=== PATIENT | male | born 1930 | race Caucasian/White ===

== ENCOUNTER 2019-07-03 12:57 | Observation (INO) | payer MEDICARE ==
[~2019-07-03] VITALS: Ht 182.9 cm; Wt 100.0 kg
[2019-07-03 13:26] LABS: BASO % 0.4 % (0.0-2.0); EOS # 0.1 (0.0-0.7); EOS % 0.5 % (0-4.0); GRAN # 8.4 (1.4-6.5); GRAN % 77.5 % (42.2-75.2); HEMATOCRIT 39.6 % (42.0-52.0); HEMOGLOBIN 13.1 g/dl (13.5-18.0); LYMPH # 1.4 (1.2-3.4); MEAN CELL VOLUME 97 fl (80.0-100.0); MEAN CORPUSCULAR HEMOGLOBIN 32 pg (27.0-31.0); MEAN CORPUSCULAR HGB CONC 33 g/dl (33.0-37.0); MEAN PLATELET VOLUME 10.8 fl (7.4-10.4); MONO # 0.9 (0.1-0.6); MONO % 8.3 % (1.7-9.3); PLATELET COUNT 257 K/mm3 (130-400)
[2019-07-03 13:32] LABS: COLLECTION METHOD CLEAN CATCH
[2019-07-03 13:37] LABS: MUCOUS Present /lpf; PH 6 (5-8); SQUAMOUS EPITHELIAL 0-2 /hpf; URINE APPEARANCE Clear; URINE BACTERIA None Seen /hpf; URINE BILIRUBIN Negative (NEGATIVE); URINE BLOOD 2+ (NEGATIVE); URINE COLOR Yellow; URINE GLUCOSE Negative (NEGATIVE); URINE KETONE Negative (NEGATIVE); URINE LEUKOCYTE ESTERASE Negative (NEGATIVE); URINE NITRATE Negative (NEGATIVE); URINE PROTEIN(semi-quant) Negative (NEGATIVE); URINE RBC 0-2 /hpf; URINE UROBILINOGEN Negative (NEGATIVE)
[2019-07-03 13:39] LABS: ALBUMIN 4.2 gm/dL (3.5-5.0); CALCIUM 9.7 mg/dL (8.4-10.2); CREATININE, serum 1.41 (0.66-1.25); POTASSIUM 4.5 mmol/L (3.4-5.0); TOTAL PROTEIN 7.6 gm/dL (6.4-8.2)
[2019-07-03 17:41] VITALS: BP 130/53; PULSE 76; TEMP 97.3
--- NOTE | 2019-07-03 19:30 | NUR ---
Pt. laying in bed at this time. Pt. is A&OX3, assessment complete. IV to lt. ac patent, IV fluids infusing per orders. Pt. denies pain or other needs, call light within reach.
[2019-07-03 20:10] VITALS: BP 100/41; PULSE 76; TEMP 97.6
[2019-07-04 00:22] VITALS: BP 107/40; PULSE 76; TEMP 97.8
[2019-07-04 04:16] VITALS: BP 105/41; PULSE 80; TEMP 98
--- NOTE | 2019-07-04 06:19 | NUR ---
Pt. slept well. Pt. remains A&OX3. IV to lt. ac patent. Pt. denies needs.
[2019-07-04 07:40] VITALS: BP 107/48; PULSE 92; TEMP 97.9
--- NOTE | 2019-07-04 08:25 | NUR ---
HOSPITALIST CARE TEAM ROUNDING. SEE ORDERS.
[2019-07-04 08:50] LABS: BASO % 0.4 % (0.0-2.0); EOS # 0.1 (0.0-0.7); EOS % 1.6 % (0-4.0); GRAN # 5.4 (1.4-6.5); GRAN % 75.9 % (42.2-75.2); LYMPH # 0.9 (1.2-3.4); LYMPH % 12.6 % (20.0-51.0); MEAN CELL VOLUME 98 fl (80.0-100.0); MEAN CORPUSCULAR HGB CONC 33 g/dl (33.0-37.0); MEAN PLATELET VOLUME 10.8 fl (7.4-10.4); MONO # 0.7 (0.1-0.6); MONO % 9.2 % (1.7-9.3); PLATELET COUNT 195 K/mm3 (130-400); RED BLOOD COUNT 3.27 M/mm3 (4.20-5.60)
[2019-07-04 08:53] LABS: HEMOGLOBIN 10.6 g/dl (13.5-18.0); MEAN CORPUSCULAR HEMOGLOBIN 32 pg (27.0-31.0)
[2019-07-04 09:08] LABS: CALCIUM 8.5 mg/dL (8.4-10.2); CREATININE, serum 1.29 (0.66-1.25)
--- NOTE | 2019-07-04 10:38 | NUR ---
UROLOGY PA AT BEDSIDE. SEE NOTES
[2019-07-04 10:50] VITALS: BP 119/43; PULSE 86; TEMP 97.3
--- NOTE | 2019-07-04 11:26 | NUR ---
INOCENTE met with the patient and the patient's son, Ab (ph#[phone]), to discuss discharge plan. The patient lives alone outside of [place]. Ab lives close by and the patient's , Chanda, is a long-term care resident at [facility]. The patient reports independence with ADLs and has crutches. The patient's PCP is Dr. Fan Whittaker and he receives his medications at [facility]. Ab reports no difficulties obtaining his meds. The patient does not have advanced directives, but he was interested in completing one. INOCENTE provided the DPOA-HC form. The patient designated his son (Ab Powell) and [id number] (Parvin Powell, ph#[phone]). INOCENTE and the patient's RN, Steph, witnessed the patient's signature. The patient and his son was provided with the original and some copies. The patient and his son would be interested in going to [facility] for a short time for SNF. INOCENTE discussed how the patient is observation and how it would be private pay. The patient's son is agreeable to private pay. INOCENTE presented and explained the Patient Choice Form to the patient and his son. The patient verbalized understanding, signed, and he was provided a copy. INOCENTE contacted and faxed a referral to Laekisha at [facility]. Lakeisha reports that they are able to accept the patient. SW to inform the patient and his son and will continue to follow.
--- NOTE | 2019-07-04 15:30 | NUR ---
AT BEDSIDE AND WAS ABLE TO TALK THE PATIENT INTO STAYING ANOTHER NIGHT. SEE ORDERS FOR CT SCAN. PATIENT WAS NOT ABLE TO TOLERATE THE MRI.
[2019-07-04 15:34] VITALS: BP 140/45; PULSE 86; TEMP 97.8
--- NOTE | 2019-07-04 15:40 | NUR ---
GAVE PRN PO ATIVAN BEFORE CT SCAN PER ORDERS
--- NOTE | 2019-07-04 16:15 | NUR ---
PATIENT GOING DOWN TO CT SCAN. GAVE PRN MORPHINE 1MG IV PER ORDERS. FAMILY AT BEDSIDE.
--- NOTE | 2019-07-04 18:00 | NUR ---
FAMILY OUT AT DESK ABOUT TO LEAVE FOR THE NIGHT. WHEN FAMILY LEFT ROOM PATIENT IMMEDIATELY TIRED TO GET UP AND LEAVE. PATIENT IS A LITTLE CONFUSED AFTER RECEIVING ATIVAN AND MORPHINE FOR CT SCAN. PATIENT ASSITED BACK INTO BED. BED ALARM ON. PATIENT MESSING WITH IV SITE. COVERED LEFT AC IV WITH COBAN. HAMMOND CATH IS LEAKING. CT REPORTED BREAKING OFF HAMMOND HOOK DOWN IN CT. APPLIED NEW HAMMOND DRAINAGE BAG. PATIENT NOW RESTING UP IN BED WITH ICE CREAM AND HAPPY. CALL LIGHT IN REACH. BED ALARM ON. WILL MONITOR.
--- NOTE | 2019-07-04 19:15 | NUR ---
Report received. Assumed care for veterinary hospital shift lead. Unable to do full assessment. Very combative and confused. Wont allow staff near enough to assess-striking out, kicking and spitting. Climbing out of bed over bed rails.
--- NOTE | 2019-07-04 20:20 | NUR ---
Notified RICARDO Martines of change in orientation/combativeness. Will come to see.
--- NOTE | 2019-07-05 | NUR ---
Still remains combative/uncooperative. Did calm down some after putting underwear on. No VS completed so far this shift as wont let staff close to him without hitting/spitting. PCT at bedside constantly.
--- NOTE | 2019-07-05 01:00 | NUR ---
Resting eyes closed. Has calmed down for first time. PCT remains at bedside. Instructed to let sleep-not to wake for VS. Marquez cath with light pink urine. Will monitor.
--- NOTE | 2019-07-05 02:53 | NUR ---
Rested well from until now. Restless/agitated/confused/combative. Pulling on guzman cath/IV site tubing. Attempting to crawl out foot of bed. Tried re-orienting but makes more combative. Haldol given per dr blanton.
--- NOTE | 2019-07-05 04:00 | NUR ---
Restless off and on. C/O pain at IV site. Noted to be irritated-redness/small amount of swelling. DCd at this time. Refusing to allow restart. Did not attempt to discuss further as its making more agitated/combative. Has spit several times since 0200 at staff. Denies pain. Assisted back to bed with x3 staff. Alma has some small clots in tubing. Output is light pink at times. Denies needs. PCT has remained at bedside all this shift. Will monitor.
--- NOTE | 2019-07-05 06:40 | NUR ---
sitting up on side of bed with DIRECTOR OF ACCOUNTING at side, he is confused to time and place and asking someone to take him to Dr Long Dhillon in to see patient, He is not combative at this time
--- NOTE | 2019-07-05 07:00 | NUR ---
family here to visit and is wanting Dr to see and discharge as soon as possible
[2019-07-05 07:11] LABS: BASO % 0.3 % (0.0-2.0); EOS # 0.1 (0.0-0.7); EOS % 0.6 % (0-4.0); GRAN # 7.5 (1.4-6.5); GRAN % 75.3 % (42.2-75.2); LYMPH # 1.2 (1.2-3.4); LYMPH % 12.2 % (20.0-51.0); MEAN CELL VOLUME 96 fl (80.0-100.0); MEAN CORPUSCULAR HEMOGLOBIN 32 pg (27.0-31.0); MEAN CORPUSCULAR HGB CONC 34 g/dl (33.0-37.0); MEAN PLATELET VOLUME 11.4 fl (7.4-10.4); MONO # 1.1 (0.1-0.6); MONO % 11.1 % (1.7-9.3); PLATELET COUNT 205 K/mm3 (130-400); RED BLOOD COUNT 3.41 M/mm3 (4.20-5.60); REDCELL DISTRIBUTION WIDTH-CV 12.9 % (11.5-14.5)
[2019-07-05 07:13] LABS: HEMATOCRIT 32.7 % (42.0-52.0)
[2019-07-05 07:27] LABS: CALCIUM 8.8 mg/dL (8.4-10.2); CREATININE, serum 1.16 (0.66-1.25); POTASSIUM 3.9 mmol/L (3.4-5.0)
--- NOTE | 2019-07-05 07:30 | NUR ---
in bed and has had breakfast and tolerated well, is dozing for very short intervals and is being encouraged to sleep by LAND CHECKER and [id number]
[2019-07-05] MEDS ORDERED: FLOMAX 0.40.4 MG/CAP PO (08:29)
[2019-07-05] MEDS ORDERED: TYLENOL 325MG325 MG PO (08:30)
--- NOTE | 2019-07-05 08:45 | NUR ---
family outside of room and states the pateint is now sleeping, will wait until he is awake for assessment, [employer] remains at bedside
--- NOTE | 2019-07-05 09:00 | NUR ---
Dr Perez spoke with family outside of room as patient continues to sleep, will plan discharge to [facility], Dr Will come and assess when patient is awake
--- NOTE | 2019-07-05 09:15 | NUR ---
The patient is to discharge today, 07/05, to [facility] for a private pay skilled stay. The patient's son, Ab, is to provide transportation for the patient with [facility]. No additional needs at this time.
[2019-07-05 09:33] VITALS: BP 140/45; PULSE 86; TEMP 97.8
--- NOTE | 2019-07-05 10:05 | NUR ---
continues to appear to sleep, in bed with lights off, eyes closed, resp quiet and easy, PHYSIOTHERAPY AIDE remains at bedside
--- NOTE | 2019-07-05 10:31 | NUR ---
daughterin-law states will be back soon for transfer so patient awakened now, Dr Perez in to assess patient and full assessment completed by this nurse, see interventions for further info, telemetry discontinued and AUDITOR assisting him with getting dressed for discharge
--- NOTE | 2019-07-05 10:57 | NUR ---
patient discharge per WC with family, report called to TOÑA Melendrez at [facility]
[2019-07-05 11:04] VITALS: BP 115/70; PULSE 78; TEMP 96.9
== END 2019-07-05 10:57 ==
LOC: COL.ER 12:57 → SURG 14:54
PROVIDERS: Emergency Medicine; Physician Assistant; ADMIT Student in an Organized Health Care Education/Training Program
DX: R26.2 Difficulty in walking, not elsewhere classified (principal); M16.11 Unilateral primary osteoarthritis, right hip; G89.29 Other chronic pain; M54.5 Low back pain; N17.9 Acute kidney failure, unspecified; N40.1 Benign prostatic hyperplasia with lower urinary tract symptoms; R33.9 Retention of urine, unspecified; Z85.46 Personal history of malignant neoplasm of prostate; Z83.3 Family history of diabetes mellitus; Z82.49 Family history of ischemic heart disease and other diseases of the circulatory system
CPT/HCPCS: G0378; J1630; J2270; J7030; J7040

== ENCOUNTER 2019-07-15 06:05 | Inpatient (IN) | payer MEDICARE ==
[2019-07-15] VITALS (7 sets, daily range): BP systolic 104–127; BP diastolic 42–96; PULSE 74–104; TEMP 97.8–98.9
[~2019-07-15] VITALS: Ht 180.3 cm; Wt 103.6 kg
[~2019-07-15 06:05] MED LIST: FLOMAX 0.40.4 MG/CAP PO; TYLENOL 325MG325 MG PO
[2019-07-15] MEDS ORDERED: MELATONIN5 M1 SL (07:00)
[2019-07-15] MEDS ORDERED: CIPRO 500MG TA500 MG PO (07:00)
[2019-07-15] MEDS ORDERED: FLOMAX 0.40.4 MG/CAP PO (07:01)
[2019-07-15] MEDS ORDERED: TYLENOL 325MG325 MG PO (07:02)
[2019-07-15] MEDS ORDERED: TYLENOL 500MG500 MG PO (07:03)
--- NOTE | 2019-07-15 11:28 | NUR ---
Sitting with patient at this time as he is very restless. He does know that he just had a procedure done, but quickly forgets. Pt family left at this time, will continue to monitor.
--- NOTE | 2019-07-15 20:02 | NUR ---
Sitting up in chair. Patient confused as to what procedure he had done today. Explained to the patient procedure that was done and reason for catheter. Catheter intact draining clear pink urine with scant amount of clots. CBI in place. Denies pain. Denies further needs at this time.
--- NOTE | 2019-07-15 23:43 | NUR ---
Lying in bed on left side with eyes closed. Respirations even and unlabored. No signs or symptoms of discomfort noted. CBI patent at slow drip. Marquez patent with pink colored urine in bag.
--- NOTE | 2019-07-16 01:36 | NUR ---
Lying in bed on right side with eyes closed. Respirations even and unlabored. No signs or symptoms of discomfort noted. CBI patent and slow draining. Marquez patent with clear pink urine in bag.
[2019-07-16 03:57] VITALS: BP 112/52; PULSE 80; TEMP 97.9
--- NOTE | 2019-07-16 04:47 | NUR ---
Lying in bed on left side with eyes closed. Respirations even and unlabored. No signs or symptoms of discomfort noted. CBI continues slowly. Catheter patent with clear yellow urine in bag.
[2019-07-16 07:43] VITALS: BP 116/48; PULSE 98; TEMP 100.5
--- NOTE | 2019-07-16 09:00 | NUR ---
Patient alert and oriented, answers questions appropriately. See assessment. Marquez catheter patent and draining clear yellow urine. CBI clamped at 0745. No c/o pain or discomfort.
[2019-07-16 11:50] VITALS: BP 114/59; PULSE 87; TEMP 98.1
[2019-07-16 15:33] VITALS: BP 108/61; PULSE 79; TEMP 97.8
--- NOTE | 2019-07-16 16:22 | NUR ---
plan: To return home with family members as care support. Patient reports his son Amrit lives across the street, and his granddaughter and grandson Sonam, and Esequiel live in [place] and visit him daily. Patient lives in [facility]. Assess: SW met with patient at this bedside. patient reports that he is very independent and he is able to get around with minimal assistance. SM reports that he does rely on a walker. Patient reports that Dr. Self is is primary care physician, and he gets his medications from [facility] with no complications. Patient denied having any care concerns, and patient denied a need for home health services stating that his daughter in law Parvin takes [phone] takes care of him as well. Action: No additional concerns identified. Patient was educated on community resources and supports.
--- NOTE | 2019-07-16 19:30 | NUR ---
Assisted to bed with 2 assist. Unsteady on his feet. Has guzman catheter to BSD with yellow urine. Catheter cares provided. SL to left hand without redness or swelling. Is alert and oriented x3. Watching football on tV at this time.
[2019-07-16 20:10] VITALS: BP 122/51; PULSE 82; TEMP 97.3
--- NOTE | 2019-07-17 00:10 | NUR ---
Patient awake, asks time of day and when Dr Bueno would be in to see him. Cooperative with staff. Bed alarm on.
[2019-07-17 00:19] VITALS: BP 97/40; PULSE 85; TEMP 99
[2019-07-17 04:28] VITALS: BP 111/44; PULSE 87; TEMP 98.2
--- NOTE | 2019-07-17 04:54 | NUR ---
Patient asking time of day and if Dr Bueno will see him today. Reoriented to place and time. Assisted back to bed. Marquez patent with yellow urine. Denies pain.
[2019-07-17 07:35] VITALS: BP 123/48; PULSE 84; TEMP 98.1
--- NOTE | 2019-07-17 08:30 | NUR ---
Dr Bueno in to see patient. Patient alert and oriented, answers questions appropriately, see assessment. No c/o pain or discomfort. Marquez catheter intact and draining clear yellow urine. Marquez catheter discontinued at [address]s order, via prime and pull, 500ml sterile water instilled per drs order. No c/o at this time.
[2019-07-17 12:12] VITALS: BP 107/79; PULSE 87; TEMP 97.7
--- NOTE | 2019-07-17 15:00 | NUR ---
18FR COUDE TIP HAMMOND CATHETER INSERTED WITH NO COMPLICATIONS PER DRS ORDER.
--- NOTE | 2019-07-17 15:10 | NUR ---
PATIENT SON AND [facility] NOTIFIED OF DISCHARGE.
--- NOTE | 2019-07-17 16:20 | NUR ---
Patient discharged to [facility] via wheelchair/auto with son. Report called, paperwork sent.
== END 2019-07-17 16:20 | DRG 714 ==
LOC: SDCO 06:05 → SURG 12:00 → SDCO 15:00 → SURG 07-17 16:20
PROVIDERS: ADMIT Urology
PROC: 0VT08ZZ Resection of Prostate, Via Natural or Artificial Opening Endoscopic (ICD-10-PCS; principal; 2019-07-15 08:00)
DX: N40.1 Benign prostatic hyperplasia with lower urinary tract symptoms (principal); C61 Malignant neoplasm of prostate; R33.8 Other retention of urine; D64.9 Anemia, unspecified; M13.851 Other specified arthritis, right hip; M47.9 Spondylosis, unspecified; Z85.46 Personal history of malignant neoplasm of prostate; Z88.0 Allergy status to penicillin
CPT/HCPCS: J2250; J2370; J2405; J2704; J3010; J7120